=== PATIENT | male | born 1965 | race Caucasian/White ===

== ENCOUNTER → 2021-05-23 | Outpatient (CLI) | payer OTHER | LOC: HEART CORB 08:44 | DX: R07.89 Other chest pain (principal); I49.3 Ventricular premature depolarization; R00.2 Palpitations; I44.7 Left bundle-branch block, unspecified; I11.9 Hypertensive heart disease without heart failure; E78.5 Hyperlipidemia, unspecified; E11.9 Type 2 diabetes mellitus without complications; Z88.0 Allergy status to penicillin; Z87.891 Personal history of nicotine dependence; Z79.899 Other long term (current) drug therapy | CPT/HCPCS: 78452; A9502; J2785 ==